=== PATIENT | male | born 1990 | race Caucasian/White ===

== ENCOUNTER 2016-12-08 12:22 | Emergency (ER) | payer OTHER ==
[~2016-12-08] VITALS: Ht 175.3 cm; Wt 60.5 kg
[2016-12-08 12:38] VITALS: Ht 175.3 cm; Wt 60.5 kg
[2016-12-08] MEDS ORDERED: DIPHTH/TET/ACEL PERTUSS (ADULT) 0.5 ML VIAL IM* ONE (14:00)
[2016-12-08] MEDS ORDERED: LIDOCAINE 1% (MDV) 20 ML INJ SC ONE (14:00)
[2016-12-08] MEDS ORDERED: CEPH-443 PO (15:05)
[2016-12-08] MEDS ORDERED: ACET500C5 PO (15:05)
[2016-12-08] MEDS ORDERED: SULF1TAB31 PO (15:06)
--- NOTE | 2016-12-08 15:19 | ERD ---
ER Documentation Chief Complaint Date/Time DATE: 12/08/16 TIME: 15:08 Chief Complaint right hand pain/injury HPI Patient is a 35-year-old male who presents to the ED for concerns of right finger swelling and pain. Patient states 1 week ago that he got a splinter stuck in his finger. Patient states he attempted to pull it out. Patient reports worsening redness and swelling to the tip of his finger. Denies any fevers or chills. Patient does not recall his last tetanus vaccine. Patient is homeless. Patient denies any chest pain, shortness breath, nausea, vomiting , LOC. Patient denies any drug or alcohol use. Denies any falls or trauma. ROS All systems reviewed and are negative except as per history of present illness. Medications Home Meds Active Scripts Sulfamethoxazole/Trimethoprim* (Bactrim Ds* Tablet) 1 Each Tablet, 1 TAB PO BID , #20 TAB Prov:DEL HUTCHISON PA-C 12/08/16 Cephalexin* (Keflex*) 500 Mg Capsule, 500 MG PO TID for 10 Days, CAP Prov:DEL HUTCHISON PA-C 12/08/16 Acetaminophen* (Tylophen*) 500 Mg Capsule, 1 CAP PO Q6H Y for PAIN AND OR ELEVATED TEMP, #20 CAP Prov:DEL HUTCHISON PA-C 12/08/16 Allergies Allergies: Coded Allergies: No Known Allergy (Unverified , 12/08/16) PMhx/Soc History of Surgery: Yes (right foot sx w/ screws/plates) Anesthesia Reaction: No Hx Alcohol Use: No Hx Substance Use: Yes (marijuana, denies other drug use) Hx Tobacco Use: Yes (3cig/day) Smoking Status: Current every day smoker Physical Exam Vitals Vital Signs Date Time Temp Pulse Resp B/P Pulse Ox O2 Delivery O2 Flow Rate FiO2 12/08/16 12:38 98.2 88 19 143/79 97 Physical Exam GENERAL: Disheveled male. Appears in no acute distress. HEAD: Normocephalic, atraumatic. EYES: Pupils are equally reactive bilaterally. EOMs grossly intact. No conjunctival erythema. ENT: Moist mucous membranes. No uvula deviation. No kissing tonsils. NECK: Supple. No meningismus. Normal range of motion of the neck. LUNG: Clear to auscultation bilaterally. No rhonchi, wheezing, rales or coarse breath sounds. HEART: Regular rate and rhythm. No murmurs, rubs or gallops. EXTREMITIES: Equal pulses bilaterally. No peripheral clubbing, cyanosis or edema. No unilateral leg swelling. NEUROLOGIC: Alert and oriented. Moving all four extremities without any difficulty. Normal speech. Steady gait. RIGHT HAND: Swelling and redness noted on the tip of the 3rd distal digit. + Fluctuance noted. No fusiform swelling. Patient able to bend at PIPJ and DIPJ. Normal ROM of the wrist. Normal range of motion of digits 1, 2, 4 and 5. No flexed position. No fusiform swelling. Results 24 hrs Current Medications Medications (Trade) Dose Ordered Sig/Steven Route PRN Reason Start Time Stop Time Status Last Admin Dose Admin Diphtheria/ Tetanus/Acell Pertussis (Adacel) 0.5 ml ONCE ONCE IM* 12/08/16 14:00 12/08/16 14:01 DC 12/08/16 14:03 Lidocaine (Xylocaine 1% (Mdv) 20 ml) 20 ml ONCE ONCE SC 12/08/16 14:00 12/08/16 14:01 DC Procedures/MDM ED COURSE: The patient was stable throughout ED course. I kept the patient and/or family informed of laboratory and diagnostic imaging results throughout the ED course. PROCEDURES: INCISION AND DRAINAGE: The patient was verbally consented prior to procedure. Patient was explained the risks, benefits and alternatives to this procedure. Location: R 3rd finger, distal tip, +Felon Anesthesia: digital block 1% lidocaine, 5 cc Preparation: The area was prepped in a sterile fashion using betadine x3 cleanses. A sterile field was prepared. Technique: A sterile 11 blade scalpel was used to make a 1 cm linear incision into the abscess. Procedure: A midline abscess incision was made using a sterile scalpel in a linear fashion. Purulent material was expressed with direct pressure. Blunt probing was used to break up loculations. Bleeding was minimal. Packing: none After blunt probing, patient refused to allow for further drainage of purulent discharge with direct pressure. Patient refused to sit still and continued shaking hand vigorously. There was a small incision to allow for spontaneous drainage. MEDICATIONS GIVEN: Tdap Patient tolerated medication well with no adverse reactions. Patient reported improvement in pain. MEDICAL DECISION MAKING: This is a 25-year-old male who presents for concerns of a splinter stuck in his right third distal digit. Patient is homeless. Patient denied any drug or alcohol use. Vital signs were reviewed. Patient was afebrile. Patient was given his Tdap vaccine today. Dr. Larkin, my supervising physician examined the patient and agreed findings were consistent with a felon vs finger tip abscess. The wound was cleansed thoroughly. Incision and drainage was conducted. Patient allowed for minimal drainage from wound site. Further purulent discharge is likely present in the finger tip, however patient refused to allow procedure to continue. Patient was encouraged to perform warm compresses. Patient advised to keep hands clean. Low suspicion for fracture, dislocation, flexor tenosynovitis, neurovascular injury, tendon injury. PRESCRIPTIONS: Bactrim, Keflex, Tylenol DISCHARGE: At this time, the patient is stable for discharge and outpatient management. Post-procedural wound care was discussed with the patient. The patient has been advised to return to the ER in 2 days for a wound check. I have instructed the patient to promptly return to the ER for any new or worsening symptoms including increasing pain, fever, warmth, redness or swelling. The patient and/ or family expressed understanding of and agreement with this plan. All questions were answered. Home care instructions were provided. Departure Diagnosis: Primary Impression: Abscess of finger Laterality: left Qualified Code: L02.512 - Abscess of finger of left hand Condition: Stable Patient Instructions: Abscess Drainage Referrals: [facility] YOU HAVE RECEIVED A MEDICAL SCREENING EXAM AND THE RESULTS INDICATE THAT YOU DO NOT HAVE A CONDITION THAT REQUIRES URGENT TREATMENT IN THE EMERGENCY DEPARTMENT. FURTHER EVALUATION AND TREATMENT OF YOUR CONDITION CAN WAIT UNTIL YOU ARE SEEN IN YOUR DOCTORS OFFICE WITHIN THE NEXT 1-2 DAYS. IT IS YOUR RESPONSIBILITY TO MAKE AN APPOINTMENT FOR FOLOW-UP CARE. IF YOU HAVE A PRIMARY DOCTOR --you should call your primary doctor and schedule an appointment IF YOU DO NOT HAVE A PRIMARY DOCTOR YOU CAN CALL OUR PHYSICIAN REFERRAL HOTLINE AT IF YOU CAN NOT AFFORD TO SEE A PHYSICIAN YOU CAN CHOSE FROM THE FOLLOWING [facility] CL[facility] [address] [facility] [address] [facility]. [facility] [address] [facility] [address] [facility] [address] [facility] [facility] [address] [facility]. [facility] YOU HAVE RECEIVED A MEDICAL SCREENING EXAM AND THE RESULTS INDICATE THAT YOU DO NOT HAVE A CONDITION THAT REQUIRES URGENT TREATMENT IN THE EMERGENCY DEPARTMENT. FURTHER EVALUATION AND TREATMENT OF YOUR CONDITION CAN WAIT UNTIL YOU ARE SEEN IN YOUR DOCTORS OFFICE WITHIN THE NEXT 1-2 DAYS. IT IS YOUR RESPONSIBILITY TO MAKE AN APPOINTMENT FOR FOLOW-UP CARE. IF YOU HAVE A PRIMARY DOCTOR --you should call your primary doctor and schedule and appointment IF YOU DO NOT HAVE A PRIMARY DOCTOR YOU CAN CALL OUR PHYSICIAN REFERRAL HOTLINE AT . IF YOU CAN NOT AFFORD TO SEE A PHYSICIAN YOU CAN CHOSE FROM THE FOLLOWING [facility] INSTITUTIONS: [facility] [address] [place] [address] [facility] [address] [place] [address] [facility] [address] [place] [address] Additional Instructions: Return in 2 days for wound recheck. Return sooner for any new or worsening symptoms including redness, swelling, warmth, fevers or chills. Call your primary care doctor TOMORROW for an appointment during the next 1-2 days.See the doctor sooner or return here if your condition worsens before your appointment time. DEL HUTCHISON PA-C Dec 08, 2016 15:19
== END 2016-12-08 15:57 | disposition home or self-care (01) ==
LOC: FTE 12:22
DX: L02.511 Cutaneous abscess of right hand (principal); F17.210 Nicotine dependence, cigarettes, uncomplicated; Z23 Encounter for immunization
CPT/HCPCS: 26010; 90471; 90715; Z7502; Z7610